=== PATIENT | female | born 1970 | race Caucasian/White ===

== ENCOUNTER 2017-02-06 19:02 | Emergency (ER) | payer MEDICAID ==
[2014-12-31 07:50] VITALS: BMI 42.8
[~2017-02-06 19:02] MED LIST: ADDERALL 30 MG30 MG PO; ALBUTEROL0.63 MG/3 INH; CELEXA20 MG PO; HYDROCODONE-APA1 TAB PO; KLONOPIN1 MG PO; LATUDA80 MG PO; LITHIUM CARBON300 MG PO; PROAIR HFA8.5 GM INH; TOPAMAX50 MG PO
[2017-02-06 19:42] LABS: UDS - AMPHET POSITIVE QUAL (NEGATIVE); UDS - BARB NEGATIVE QUAL (NEGATIVE); UDS - BENZO NEGATIVE QUAL (NEGATIVE); UDS - COCAINE NEGATIVE QUAL (NEGATIVE); UDS - METH NEGATIVE QUAL (NEGATIVE); UDS - OPIATE NEGATIVE QUAL (NEGATIVE); UDS - PCP NEGATIVE QUAL (NEGATIVE); UDS - THC POSITIVE QUAL (NEGATIVE)
[2017-02-06 19:44] LABS: HCG URINE NEGATIVE (NEGATIVE)
[2017-02-06 19:45] LABS: BASOPHILS 0.5 % (0-2); EOSINOPHILS 2.2 % (0-7); HEMATOCRIT 44.9 % (36.0-48.0); HEMOGLOBIN 15.2 g/dL (12-16); IMMATURE GRANULOCYTES 0.3 % (0-5); LYMPHOCYTES 24.4 % (15-50); MCH 29.9 pg (26.0-34.0); MCHC 33.9 g/dL (31.0-37.0); MCV 88.2 fL (80.0-100.0); MEAN PLATELET VOLUME 9.9 fL (7.4-10.4); MONOCYTES 8.2 % (2-11); NEUTROPHILS 64.4 % (40-80); RBC 5.09 10x6/uL (4.00-5.40); RDW 14.6 % (11.5-14.5); WBC 9.4 10x3/uL (4.8-10.8)
[2017-02-06 19:50] LABS: PLATELET COUNT 309 10x3/uL (130-400)
[2017-02-06 19:52] LABS: APPEARANCE CLEAR (CLEAR); BILIRUBIN NEGATIVE (NEGATIVE); COLOR STRAW (YELLOW); GLUCOSE NEGATIVE (NEGATIVE); KETONE NEGATIVE (NEGATIVE); LEUKOCYTE ESTERASE NEGATIVE (NEGATIVE); NITRITE NEGATIVE (NEGATIVE); PROTEIN NEGATIVE (NEGATIVE); UROBILINOGEN NORMAL (NORMAL)
[2017-02-06 20:11] LABS: ALBUMIN 3.7 g/dL (3.4-5.0); ANION GAP 10.1 mmol/L (8-16); BILIRUBIN - TOTAL 0.57 mg/dL (0.2-1.3); CALCIUM 9.2 mg/dL (8.5-10.1); CARBON DIOXIDE 28.6 mmol/L (21.0-32.0); CREATININE - SERUM 0.9 mg/dL (0.6-1.3); POTASSIUM - SERUM 3.7 mmol/L (3.5-5.1); PROTEIN - SERUM 7.7 g/dL (6.4-8.2)
[2017-02-06 20:20] LABS: THYROID STIMULATING HORMONE 2.48 uIU/mL (0.36-3.74)
== END 2017-02-06 21:42 | disposition home or self-care (01) ==
LOC: D.ER 19:02
PROVIDERS: Emergency Medicine
DX: Z86.59 Personal history of other mental and behavioral disorders (principal); F43.22 Adjustment disorder with anxiety; F90.9 Attention-deficit hyperactivity disorder, unspecified type; R45.1 Restlessness and agitation; F17.200 Nicotine dependence, unspecified, uncomplicated

== ENCOUNTER → 2018-01-10 08:50 | Outpatient (CLI) | payer MEDICAID ==
[2014-12-31 07:50] VITALS: BMI 42.8
== END | disposition home or self-care (01) ==
LOC: D.RT 08:50
DX: J44.9 Chronic obstructive pulmonary disease, unspecified (principal)

== ENCOUNTER 2018-05-29 08:20 | Day surgery (SDC) | payer MEDICARE ==
[2018-05-28 16:19] LABS: HEMATOCRIT 40.2 % (36.0-48.0); HEMOGLOBIN 13.6 g/dL (12-16); MCH 30.4 pg (26.0-34.0); MCHC 33.8 g/dL (31.0-37.0); MCV 89.9 fL (80.0-100.0); MEAN PLATELET VOLUME 10.2 fL (7.4-10.4); RBC 4.47 10x6/uL (4.00-5.40); RDW 14.3 % (11.5-14.5); WBC 6.9 10x3/uL (4.8-10.8)
[~2018-05-29] VITALS: Ht 167.6 cm; Wt 98.6 kg
[2018-05-29] VITALS (12 sets, daily range): BP systolic 103–128; BP diastolic 50–76; Ht 167.6 cm; Wt 98.6 kg
[~2018-05-29 08:20] MED LIST changes: +ARMOUR THYROID90 MG PO; +LIPITOR10 MG PO; +SEROQUEL100 MG PO
[2018-05-30] VITALS (8 sets, daily range): BP systolic 101–124; BP diastolic 47–68
--- NOTE | 2018-08-05 10:06 | OP ---
PATIENT NAME: HERMANN ROCHA MEDICAL RECORD: [id number] :70 LOCATION:NAT ADMISSION DATE: SURGEON: SHELLY MAYNARD MD DATE OF OPERATION: 05/29/2018 PREOPERATIVE DIAGNOSES: Osteophyte formation and disc herniation C5-C6. POSTOPERATIVE DIAGNOSES: Osteophyte formation and disc herniation C5-C6. PROCEDURE: Anterior cervical discectomy and fusion with PEEK interbody cage with Zavation anterior cervical plate and screws, removal of osteophytes. SURGEON: Shelly Maynard MD DESCRIPTION OF TECHNIQUE: After induction of general endotracheal anesthesia, the patient was positioned supine on the operating table. Neck was prepped and draped in usual sterile fashion. Fluoroscopic x-ray and freer localized the C5-C6 interspace. Following this, a 1:100,000 epinephrine and 1% lidocaine was infiltrated into the soft tissues of the neck, and a transverse skin incision was carried out from the midline to the sternocleidomastoid muscle. The platysma was divided with Bovie cautery. Then, using blunt and sharp dissection with Metzenbaum scissors, I proceeded in the avascular plane medial to the carotid sheath. Following this, the C5-C6 interspace was identified with fluoroscopic x-ray and a spinal needle. The longus colli muscles were elevated from bodies of C5 and C6. A self-retaining retractor was placed deep to the longus colli muscles. Winslow distracting pins were placed by the C5-C6. The disc space was incised with #11 blade. A series of curettes and pituitary rongeurs were used to remove the disc material from the disc space. The bony endplates were prepared with curettes. Posterior longitudinal ligament was removed with Cloward rongeurs. Following this, the dura was decompressed well. A PEEK interbody cage was placed in the disc space under distraction. Prior to this, it was filled with Terrie bone stem cell allograft. A separate anterior cervical plate and screws was used to span the C5-C6 interspace. The self-drilling screws were placed through the holes in the plate. Locking cams were tightened down over the screw heads. Meticulous hemostasis was maintained throughout the wound. The wound was irrigated with copious amounts of Ancef irrigant solution. The platysma and subdermal layer closed with interrupted 3-0 Vicryl suture. The skin was reapproximated with Steri-Strips and benzoin. A sterile dressing was applied to the wound. The patient was awakened in good condition and taken to recovery. All counts were reported as correct. Estimated blood loss was minimal. TRANSINT:[id number] Voice Confirmation ID: [id number] DOCUMENT ID: [id number] SHELLY MAYNARD MD at 1006 CC: [id number] DICTATION DATE: 07/30/18 1503 PACKING CLERK: 07/30/18 2250 [facility] 05/30/18 [address] [place] [address]
== END 2018-05-30 09:50 | disposition home or self-care (01) ==
LOC: D.OPS 08:20 → D.CVICU 08:20 → D.OPS 05-30 07:30
PROVIDERS: Anesthesiology
DX: M25.78 Osteophyte, vertebrae (principal); M50.222 Other cervical disc displacement at C5-C6 level

== ENCOUNTER → 2018-08-26 14:25 | Outpatient (CLI) | payer MEDICARE ==
[2018-05-29 17:02] VITALS: BMI 35.1
== END | disposition home or self-care (01) ==
LOC: D.RT 14:00
PROVIDERS: ATTEND Internal Medicine Pulmonary Disease
DX: J44.9 Chronic obstructive pulmonary disease, unspecified (principal)

== ENCOUNTER 2018-10-19 17:45 | Emergency (ER) | payer MEDICARE ==
[~2018-10-19] VITALS: Ht 167.6 cm; Wt 92.3 kg
[2018-10-19 17:48] VITALS: Ht 167.6 cm; Wt 92.3 kg
[2018-10-19] MEDS ORDERED: LEVOXYL100 MCG PO (17:51)
[2018-10-19] MEDS ORDERED: SYMBICORT 16010.2 GM INH (17:51)
[2018-10-19] MEDS ORDERED: HYDROCODON-ACE1 EAC7 PO (17:52)
[2018-10-19] MEDS ORDERED: SINGULAIR10 MG PO (17:52)
[2018-10-19 18:07] LABS: APPEARANCE CLEAR (CLEAR); BILIRUBIN NEGATIVE (NEGATIVE); COLOR YELLOW (YELLOW); GLUCOSE NEGATIVE (NEGATIVE); KETONE NEGATIVE (NEGATIVE); NITRITE NEGATIVE (NEGATIVE); PROTEIN TRACE mg/dL (NEGATIVE); UROBILINOGEN NORMAL (NORMAL)
[2018-10-19 18:10] LABS: BACTERIA FEW /hpf (NONE SEEN); RED CELLS - URINE 0-5 /hpf (0-5); WHITE CELLS - URINE 0-5 /hpf (0-5)
[2018-10-19 18:14] LABS: BASOPHILS 0.5 % (0-2); EOSINOPHILS 2.1 % (0-7); HEMATOCRIT 47.7 % (36.0-48.0); HEMOGLOBIN 16.3 g/dL (12-16); IMMATURE GRANULOCYTES 0.1 % (0-5); LYMPHOCYTES 26.5 % (15-50); MCH 30.7 pg (26.0-34.0); MCHC 34.2 g/dL (31.0-37.0); MCV 89.8 fL (80.0-100.0); MEAN PLATELET VOLUME 9.5 fL (7.4-10.4); NEUTROPHILS 55.8 % (40-80); PLATELET COUNT 248 10x3/uL (130-400); RBC 5.31 10x6/uL (4.00-5.40); RDW 14.4 % (11.5-14.5); WBC 8.1 10x3/uL (4.8-10.8)
[2018-10-19 18:28] LABS: ALKALINE PHOSPHATASE 95 U/L (46-116); ALT (SGPT) 22 U/L (10-68); BILIRUBIN - TOTAL 0.73 mg/dL (0.2-1.3); CALC OSMOLALITY 276 mosm/kg (275-300); CALCIUM 9.3 mg/dL (8.5-10.1); CARBON DIOXIDE 28.5 mmol/L (21.0-32.0); CHLORIDE - SERUM 102 mmol/L (98-107); CREATININE - SERUM 0.9 mg/dL (0.6-1.3); GLUCOSE 88 mg/dL (74-106); POTASSIUM - SERUM 3.7 mmol/L (3.5-5.1); PROTEIN - SERUM 8.1 g/dL (6.4-8.2); SODIUM 140 mmol/L (136-145); UREA NITROGEN 11 mg/dL (7-18); eGFR NON AFRICAN AMERICAN 71 mL/min (90-120)
[2018-10-19 18:31] LABS: AMYLASE - SERUM 23 U/L (25-115); LIPASE 90 U/L (73-393)
[2018-10-19 18:41] LABS: TROPONIN-I < 0.017 ng/mL (0.000-0.060)
[2018-10-19] MEDS ORDERED: PROBIOTIC1 EAC1 PO (22:04)
[2018-10-19] MEDS ORDERED: ZOFRAN4 MG PO (22:04)
[2018-10-19 22:26] VITALS: BP 119/70
== END 2018-10-19 22:31 | disposition home or self-care (01) ==
LOC: D.ER 17:45
PROVIDERS: Family Medicine
DX: K52.9 Noninfective gastroenteritis and colitis, unspecified (principal); R10.13 Epigastric pain; K63.89 Other specified diseases of intestine; R11.2 Nausea with vomiting, unspecified

== ENCOUNTER → 2019-02-16 13:56 | Outpatient (CLI) | payer MEDICARE ==
[2018-10-19 17:48] VITALS: BMI 32.8
[~2019-02-16 13:56] MED LIST changes: +HYDROCODON-ACE1 EAC7 PO; +LEVOXYL100 MCG PO; +PROBIOTIC1 EAC1 PO; +SINGULAIR10 MG PO; +SYMBICORT 16010.2 GM INH; +ZOFRAN4 MG PO
== END | disposition home or self-care (01) ==
LOC: D.MRI 13:56
PROVIDERS: ATTEND Orthopaedic Surgery
DX: M75.101 Unspecified rotator cuff tear or rupture of right shoulder, not specified as traumatic (principal); M75.102 Unspecified rotator cuff tear or rupture of left shoulder, not specified as traumatic

== ENCOUNTER → 2019-03-31 16:34 | Outpatient (CLI) | payer MEDICARE ==
[2018-10-19 17:48] VITALS: BMI 32.8
[~2019-03-31 16:34] MED LIST changes: +BUSPAR 15 MG TA15 MG PO; +HYDROCODON-ACE1 EA10 PO
== END | disposition home or self-care (01) ==
LOC: D.LABREF 16:34
PROVIDERS: ATTEND Internal Medicine Pulmonary Disease
DX: R04.2 Hemoptysis (principal)

== ENCOUNTER 2019-04-02 07:05 | Day surgery (SDC) | payer MEDICARE ==
[2019-04-01 13:45] LABS: HEMOGLOBIN 13.9 g/dL (12-16); MCHC 33.1 g/dL (31.0-37.0); MCV 93.5 fL (80.0-100.0); MEAN PLATELET VOLUME 9.7 fL (7.4-10.4); RBC 4.49 10x6/uL (4.00-5.40); RDW 14.9 % (11.5-14.5); WBC 7.9 10x3/uL (4.8-10.8)
[~2019-04-02] VITALS: Ht 167.6 cm; Wt 95.3 kg
[~2019-04-02 07:05] MED LIST changes: -HYDROCODON-ACE1 EA10 PO
[2019-04-02 07:40] VITALS: BP 121/63; Ht 167.6 cm; Wt 95.3 kg
--- NOTE | 2019-04-02 07:57 | NUR ---
POSITIVE SUICIDE SCREENING, MENTAL HEALTH NURSE ON FLOOR ALREADY AND NOTIFIED
--- NOTE | 2019-04-02 08:28 | NUR ---
DR. CIFUENTES NOTIFIED AND REVIEWED PT'S BEHAVIOR AND ASSESSMENT RESULTS. PT IS A LOW RISK PER DR. CIFUENTES. DR. CIFUENTES STATED TO GIVE RESOURCES TO PT AT TIME OF DISCHARGE. NO FURTHER ORDERS AT THIS TIME. RESOURCES REVIEWED WITH PT AND SHE VERBALIZIED UNDERSTANDING.
[2019-04-02] MEDS ORDERED: HYDROCODON-ACE1 EA10 PO (09:56)
--- NOTE | 2019-04-02 11:55 | NUR ---
DISCHARGED HOME VIA WHEELCHAIR TO PRIVATE VEHICLE WITH SISTER
[2019-04-02 17:08] LABS: ANCA - ANTIMYELOPEROXIDASE <9.0 U/mL (0.0-9.0); ANCA - ANTIPROTEINASE 3 <3.5 U/mL (0.0-3.5); ANCA - ATYPICAL <1:20 titer (Neg:<1:20); ANCA - CYTOPLASMIC <1:20 titer (Neg:<1:20); ANCA - PERINUCLEAR <1:20 titer (Neg:<1:20)
--- NOTE | 2019-04-06 10:50 | OP ---
PATIENT NAME: HERMANN ROCHA MEDICAL RECORD: [id number] :70 LOCATION:NAT ADMISSION DATE: SURGEON: IRVIN FRITZ, PRADEEP TALAMANTES DATE OF OPERATION: 04/02/2019 PREOPERATIVE DIAGNOSES: 1. 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 2. Severe biceps tendinitis. PREOPERATIVE DIAGNOSES: 1. 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 2. Severe biceps tendinitis. PROCEDURE: 1. Arthroscopic biceps tenotomy. 2. Arthroscopic distal clavicle excision done through separate incision -- 1 cm. 3. Arthroscopic subacromial decompression with acromioplasty and bursectomy. SURGEON: Pradeep Bryan MD ANESTHESIA: General. INTRAOPERATIVE COMPLICATIONS: None. SUMMARY OF PATHOLOGIC FINDINGS: The patient's biceps tendon was essentially shredded in the intraarticular site, all but completely released. The patient also had a very large labral tear that I thought best treated with biceps tenotomy and debridement rather than trying to reapproximate this. I thought that the superior aspect of glenoid debridement resulted in excellent healing. Furthermore, the patient had excoriation of the coracoacromial ligament as well as grade IV chondromalacia of the acromioclavicular joint. OPERATIVE SUMMARY IN DETAIL: After obtaining the appropriate preoperative orthopedic surgery consent as well as anesthetic consultation, evaluation, and clearance, the patient was brought to the operating room and placed on the operating table in supine position. After adequate general laryngeal mask airway was administered, the patient was placed in a left lateral decubitus position. All pressure points were well padded to include down leg peroneal pad as well as axillary roll. The patient was held firmly to the operating table using the vacuum pack suction system. Right upper extremity and shoulder were then prepped and draped in routine sterile fashion. Arm was held in the Arthrex traction boom with 30 degrees of forward flexion, 30 degrees of abduction, 10 pounds of traction laterally. Arthroscopy was established in the glenohumeral joint from the posterior portal. Anterior portal was established in the anterior safe interval. Diagnostic arthroscopy did reveal the patient had the severe biceps tendinopathy. [place] tissue ablation system was utilized to release the biceps tendon at the bicipital labral junction and then a resector was utilized to gently debride the superior aspect of the glenoid itself to allow for healing of the labrum. At this point, attention was turned to the subacromial space. While in the subacromial space, accessory lateral portal was created through which an [place] tissue ablation system was utilized to denude the undersurface of the acromion of all soft tissue elements and release the coracoacromial ligament. A 5-0 barrel bur was then used to perform acromioplasty at the level of acromioclavicular joint. Lastly under direct OPERATIVE REPORT [id number] HERMANN ROCHA arthroscopic visualization through an anterior portal arthroscopic, distal clavicle excision was performed and 1 cm of distal clavicle was excised. Having completed this, the residual of the subacromial bursa was taken down anteriorly, laterally, posteriorly as well as superficially. No rotator cuff tearing was seen. At this point, arthroscopic portals were closed in routine interrupted fashion using 4-0 Prolene by RADHA Weir. Sterile dressings were applied. The patient was awakened and taken to recovery room in stable condition. All final needle and sponge counts were correct. TRANSINT:[id number] Voice Confirmation ID: [id number] DOCUMENT ID: [id number] IRVIN FRITZ, PRADEEP TALAMANTES at 1050 CC: [id number] DICTATION DATE: 04/03/19 1055 DISTRIBUTION CLERK: 04/03/19 1116 [facility] 04/02/19 [facility] [address] [place] [address]
== END 2019-04-02 11:55 | disposition home or self-care (01) ==
LOC: D.OPS 07:05 → D.PAN 12:15 → D.OPS 12:15
PROVIDERS: Anesthesiology; Internal Medicine Pulmonary Disease; ATTEND Orthopaedic Surgery
DX: M75.41 Impingement syndrome of right shoulder (principal); M75.21 Bicipital tendinitis, right shoulder; M19.011 Primary osteoarthritis, right shoulder

== ENCOUNTER → 2019-05-08 11:42 | Outpatient (CLI) | payer MEDICARE ==
[2019-04-02 07:40] VITALS: BMI 33.9
[~2019-05-08 11:42] MED LIST changes: +HYDROCODON-ACE1 EA10 PO
== END | disposition home or self-care (01) ==
LOC: D.MRI 05-06 11:30
PROVIDERS: ATTEND Clinical Nurse Specialist Family Health
DX: M25.511 Pain in right shoulder (principal)

== ENCOUNTER → 2019-06-25 12:32 | Outpatient (CLI) | payer MEDICARE ==
[2019-04-02 07:40] VITALS: BMI 33.9
== END | disposition home or self-care (01) ==
LOC: D.MRI 06-18 11:30
PROVIDERS: ATTEND Orthopaedic Surgery
DX: M54.12 Radiculopathy, cervical region (principal)

== ENCOUNTER 2020-11-03 07:41 | Day surgery (SDC) | payer MEDICARE, MEDICAID ==
[~2020-11-03] VITALS: Ht 167.6 cm; Wt 111.1 kg
[~2020-11-03 07:41] MED LIST changes: +COMBIVENT RESPIM4 GM INH; +DEPAKOTE250 MG PO; +DONEPEZIL HCL5 MG PO; +LYRICA100 MG PO; +OMEPRAZOLE40 MG PO; +TRAZODONE HCL150 MG PO; +ZYRTEC10 MG PO
[2020-11-03 08:30] LABS: ANION GAP 9.7 mmol/L (8-16); CALCIUM 9.5 mg/dL (8.5-10.1); POTASSIUM - SERUM 4.7 mmol/L (3.5-5.1)
[2020-11-03 08:45] LABS: BASOPHILS 0.5 % (0-2); HEMATOCRIT 42.4 % (36.0-48.0); HEMOGLOBIN 13.9 g/dL (12-16); IMMATURE GRANULOCYTES 0.4 % (0-5); LYMPHOCYTE ABS# 2.48 10x3/uL (1.18-3.74); LYMPHOCYTES 24.8 % (15-50); MCHC 32.8 g/dL (31.0-37.0); MCV 91.6 fL (80.0-100.0); MEAN PLATELET VOLUME 9.8 fL (7.4-10.4); MONOCYTES 10.1 % (2-11); NEUTROPHILS 61.2 % (40-80); RBC 4.63 10x6/uL (4.00-5.40); RDW 15.8 % (11.5-14.5)
[2020-11-03 08:50] LABS: PLATELET COUNT 305 10x3/uL (130-400)
[2020-11-03 09:08] VITALS: BP 123/75; Ht 167.6 cm; Wt 111.1 kg
--- NOTE | 2020-11-03 14:33 | NUR ---
PT ARRIVED FROM PACU RATING PAIN AT 10/10 AND WAS NAUSEAUS WITH VOMITING. PACU NURSE ADMINISTERED MEDS. 1510 DC TEACHING COMPLETE TO PT AND SISTER. VERBALIZED UNDERSTANDING. 1600 PIV DC'D WITH CATHETER INTACT. THIS NURSE AND ANTONIO RN ASSISTED PT TO GET DRESSED, INCLUDING SLING ON RIGHT ARM. 1613 PT DC'D VIA WC TO POV WITH SISTER DRIVING. PT/SISTER HAVE ALL BELONGINGS AND DC PACKET.
--- NOTE | 2020-11-07 07:56 | OP ---
PATIENT NAME: HERMANN CARABALLO MEDICAL RECORD: [id number] :70 LOCATION:NAT ADMISSION DATE: SURGEON: ADORE DELGADO MD DATE OF OPERATION: 11/03/2020 PREOPERATIVE DIAGNOSES: 1. Right shoulder pain/impingement. 2. Acromioclavicular arthrosis. 3. Labral tear. POSTOPERATIVE DIAGNOSES: 1. Right shoulder pain/impingement. 2. Acromioclavicular arthrosis. 3. Labral tear. PROCEDURE PERFORMED: Right shoulder scope with SAD, DCE and limited glenohumeral debridement. INDICATIONS FOR THE PROCEDURE: Ms. Caraballo is a 50-year-old female with history of right shoulder pain. We have been attempting to treat this conservatively, but she continues to have pain and limited mobility. MRI shows increased signal in the subacromial space, at the AC joint and insertion of the rotator cuff. She has elected to proceed with surgery for right shoulder arthroscopy. Risks, benefits and alternatives of surgery were discussed with the patient and consent was obtained. DESCRIPTION OF PROCEDURE: The patient was met in the holding area where her identity and confirmation of the procedure was performed. The right upper extremity was marked. She was taken to the operating room where she was placed supine on the operating table and anesthesia was administered. She was then positioned in the left lateral decubitus position. Extremities were positioned and padded appropriately. Right upper extremity was prepped and draped in a sterile fashion. The arm was then placed in the skeletal traction and attached to the outrigger device. The patient received preoperative antibiotics and timeout was performed before initiating the case. On initiation of the case, the subacromial space was infiltrated with 20 mL of 0.25% Marcaine with epinephrine. We then placed our posterior portal. I inserted the camera and placed our anterior portal under direct visualization. There was fraying of the labrum circumferentially, especially posterior. Biceps tendon had been previously released. There was grade II chondromalacia of the glenoid and some separation of the labrum at the inferior border of the glenoid as well. Rotator cuff was intact. Limited glenohumeral debridement was performed with the shaver, and before and after images were obtained. We then moved to the subacromial space. There was extensive bursitis throughout the subacromial space with inflammation of the bursa. A lateral portal was placed and a subacromial decompression was performed. Shaver was used to debride the bursa and the cautery was used at the undersurface of the acromion and at the AC joint. There was a large bone spur at the undersurface of the AC joint. A bur was then used to smooth the undersurface of the acromion. We then moved to the AC joint with the bur, I smoothed the large bone spur at the undersurface and performed distal clavicle excision. Again before and after images were obtained. There was thickening of the bursa all around into the subdeltoid recess. This was all removed with a shaver and cautery. The rotator cuff was inspected and did not have any evidence of bursal-sided tears. This completed our procedure. Instruments were removed and fluid was drained from the OPERATIVE REPORT [id number] HERMANN CARABALLO. Portal sites were closed with nylon suture. Sterile dressing was placed. The patient was placed into a sling. She was turned back over to anesthesia where she was awakened and taken to recovery room in stable condition. POSTOPERATIVE PLAN: The patient is going to return home with her family. She needs to remain in the sling at all times with instructions for no shoulder range of motion. We will see her back in clinic in 2 weeks. COMPLICATIONS: None. ESTIMATED BLOOD LOSS: 5 mL. ANESTHESIA: General with peripheral nerve block. TRANSINT:[id number] Voice Confirmation ID: [id number] DOCUMENT ID: [id number] ADORE DELGADO MD at 0756 CC: [id number] DICTATION DATE: 11/03/20 1425 CAGE/VAULT SUPERVISOR: 11/03/20 1633 [facility] 11/03/20 [facility] [address] [place] [address]
== END 2020-11-03 16:13 | disposition home or self-care (01) ==
LOC: D.OPS 07:41
PROVIDERS: Anesthesiology; ATTEND Orthopaedic Surgery
DX: M75.41 Impingement syndrome of right shoulder (principal); M13.811 Other specified arthritis, right shoulder; S43.401A Unspecified sprain of right shoulder joint, initial encounter; X58.XXXA Exposure to other specified factors, initial encounter; M25.511 Pain in right shoulder